=== PATIENT | female | born 1980 | race Caucasian/White ===

== ENCOUNTER 2016-12-24 10:00 | Inpatient (IN) | payer OTHER ==
[~2016-12-24] VITALS: Ht 157.5 cm; Wt 86.2 kg
--- NOTE | ~2016-12-24 | PN ---
Unit #: [id number] #: [id number] Patient: SAPPHIRE THAYER [id number] [facility] [address] [place] [address] [id number] MR#: [id number] NAME: SAPPHIRE TAHYER ROOM: P202 Age: 36 Sex: F Admission Date: 12/24/2016 : 1980 Attending Physician: Dylon Acevedo M.D. Admitting Physician: Dylon Acevedo M.D. Primary Care Physician: Primary Care Physician Brenna SERRATO NOTES DATE December 26, 2016 DISCUSSION Ms. Thayer is a 36-year-old white female, who was seen today and chart was reviewed and the case was discussed with the staff. She has been anxious, withdrawn, and rather seclusive to herself. Meanwhile, she has been cooperative with the treatment recommendations and has been taking the medications and tolerating them fairly well with no reported side effects. MENTAL STATUS EXAMINATION Young white female, who was casually dressed with fair personal hygiene and appears to be in no acute distress or discomfort. She was awake and alert with impaired attention and concentration. Her mood was anxious with a congruent affect. The patient denies any suicidal or homicidal ideations. Her insight and judgment remain slightly impaired. TREATMENT PLAN 1. We will continue her on her current medications and treatment protocol, and will monitor her response to the medications, and make further adjustments as needed. 2. We will continue to followup. Dictated by... Will Portillo/carleen TD: 12/27/2016 07:40 JOB #: [id number] Unit #: [id number] #: [id number] Patient: SAPPHIRE THAYER OTIS PROGRESS NOTES Page 1 of 1 X Dylon Acevedo MD PROGRESS NOTE
--- NOTE | ~2016-12-24 | HP ---
Unit #: [id number] #: [id number] Patient: SAPPHIRE BERMUDEZ [id number] [place] [address] [id number] I MR#: [id number] NAME: SAPPHIRE BERMUDEZ ROOM: 32 Age: 36 Sex: F Admission Date: 12/24/2016 : 1980 Attending Physician: Dylon Acevedo M.D. Admitting Physician: Dylon Acevedo M.D. Primary Care Physician: Primary Care Physician No HISTORY AND PHYSICAL HISTORY OF PRESENT ILLNESS The patient is a 36-year-old female who states she is an alcoholic and had a psychotic episode a few days ago and was brought here. PAST MEDICAL HISTORY Significant for asthma and fibromyalgia. PAST SURGICAL HISTORY 1. Significant for partial thyroidectomy. 2. Partial hysterectomy. ALLERGIES Gabapentin. SOCIAL HISTORY Positive for smoking, alcohol and heroin and methamphetamine. FAMILY HISTORY Noncontributory. REVIEW OF SYSTEMS CONSTITUTIONAL: No fever or chills. HEENT: Denies any sore throat, ear pain or runny nose. CARDIOVASCULAR: Denies chest pain, irregular heart rhythm or palpitations. CHEST: Denies shortness of breath or cough. No hemoptysis. GASTROINTESTINAL: Denies nausea, vomiting, diarrhea or chronic constipation. ENDOCRINE: Denies history of increased thirst or urination. No recent significant weight loss or gain. GENITOURINARY: Denies dysuria, frequency, or hematuria. SKIN: Denies any rashes. HEMATOLOGIC: Denies history of increased bleeding or bruising. MUSCULOSKELETAL: Denies any hot, swollen joints. No generalized muscle pain. NEUROLOGIC: Denies problems with vision or speech. No frequent, severe headaches. No numbness, tingling or weakness in any extremities. Denies loss of bladder or bowel control. CURRENT MEDICATIONS 1. Elavil 50 mg p.o. daily. 2. Celexa 20 mg p.o. daily. 3. Singulair 10 mg p.o. daily. 4. Symbicort 80/4.5 two puffs b.i.d. Unit #: [id number] #: [id number] Patient: SAPPHIRE BERMUDEZ 5. Ventolin inhaler 2 puffs q. 4 hours p.r.n. PHYSICAL EXAMINATION GENERAL: Alert, oriented, in no acute distress. VITAL SIGNS: Temperature 98.7, blood pressure 111/64, heart rate 91, respirations 16. HEIGHT: 5 feet 1-1/2 inches. WEIGHT: 190. SKIN: Warm and dry without rash or lesion. Multiple tattoos bilateral upper and lower extremities, entire back, chest and ear piercings. HEENT: Normocephalic. TMs not viewed. Oral and nasal passages clear. Conjunctivae clear. PERRLA. EOMs intact. NECK: Supple without lymphadenopathy or thyromegaly. HEART: Regular rate and rhythm without murmur. LUNGS: Clear. ABDOMEN: Soft, nontender, without masses or hepatosplenomegaly. : Not done. EXTREMITIES: No evidence of cyanosis, clubbing or edema. Moves all without focal deficit. NEUROLOGICAL: Grossly within normal limits. Cranial Nerves: II: Visual zambrano are intact. III, IV AND : Extraocular movements are intact. Pupils are equal, round and reactive to light. V: Facial sensation is grossly normal. VII: Facial movements and expression are normal. VIII: Auditory acuity grossly intact. IX, X: Uvula is midline. Phonation is normal. XI: Patient shrugs shoulders and turns head normally. XII: Tongue protrudes in the midline. Sensory and Motor Function: Sensory and motor sensation is grossly normal. Motor: moves all extremities well. Coordination: Gait is normal. Deep Tendon Reflexes: Intact. IMPRESSION Psychiatric admission. RECOMMENDATIONS PSYCHIATRIC: Per psychiatrist. MEDICAL: No contraindication to participate in facility's activities. MEDICAL PROGNOSIS Good. Dictated by... Meghann Westbrook/brice TD: 12/24/2016 20:17 JOB #: [id number] Unit #: [id number] #: [id number] Patient: SAPPHIRE BERMUDEZ HISTORY AND PHYSICAL Page 1 of 1 X Silvia Cedeno APR X HISTORY AND PHYSICAL
--- NOTE | ~2016-12-24 | PN ---
Unit #: [id number] #: [id number] Patient: SAPPHIRE THAYER [id number] [facility] [address] [place] [address] [id number] I MR#: [id number] NAME: SAPPHIRE THAYER ROOM: P202 Age: 36 Sex: F Admission Date: 12/24/2016 : 1980 Attending Physician: Dylon Acevedo M.D. Admitting Physician: Dylon Acevedo M.D. Primary Care Physician: Primary Care Physician Brenna BERG PROGRESS NOTES DATE 12/27/2016 DISCUSSION Ms. Thayer is a 36-year-old white female who was seen today and chart was reviewed and case was discussed with the staff. She has been anxious, withdrawn and rather seclusive to herself. Meanwhile, she has been cooperative with treatment recommendations and has been taking the medications and tolerating them fairly well with no reported side effects. MENTAL STATUS EXAMINATION Young white female who was casually dressed with fair personal hygiene and appears to be in no acute distress or discomfort. She was awake and alert on interaction with intact orientation. Her mood was anxious with congruent affect. She denies any suicidal or homicidal ideation and also denies any auditory or visual hallucinations. Her insight and judgement remains slightly impaired. TREATMENT PLAN 1. Will continue on current medications and treatment protocol. Will monitor her response to the medications and make further adjustments as needed. 2. Will continue to follow up. Dictated by... Dylon Acevedo M.D. IAA/brice TD: 12/27/2016 22:30 JOB #: [id number] Unit #: [id number] #: [id number] Patient: SAPPHIRE THAYER [place] PROGRESS NOTES Page 1 of 1 X Dylon Acevedo MD PROGRESS NOTE
--- NOTE | ~2016-12-24 | PA ---
Unit #: [id number] #: [id number] Patient: SAPPHIRE THAYER [id number] [facility] [place] [address] [id number] I MR#: [id number] NAME: SAPPHIRE THAYER ROOM: P132 Age: 36 Sex: F Admission Date: 12/24/2016 : 1980 Date of Assessment: Attending Physician: Dylon Acevedo M.D. Admitting Physician: Dylon Acevedo M.D. PSYCHIATRIC ASSESSMENT DATE OF SERVICE 12/24/2016. IDENTIFYING DATA Ms. Thayer is a 36-year-old, single, white female who is a resident of [place], [place] and is known to us from previous encounter, was self-referred to the hospital on a voluntary basis. CHIEF COMPLAINT "I had a psychotic break at the [facility] and I left at 2 a.m. today." HISTORY OF PRESENT ILLNESS Ms. Thayer is a 36-year-old white female who presented to the hospital with suicidal ideations, substance abuse, and "I was at the [facility] and the dry house worker told me I cannot come back until I complete detox and had a psychotic break at the [facility] and I left 2 in the morning." The patient reports suicidal ideation with plan to overdose on drugs or kill herself with a knife and she stated "I thought staff, clients, and my dry house worker were talking about me. I thought I saw their ladies from the house and dry house worker saying that they did not want me back and I thought I saw my sponsor." The patient reports that she relapsed in 12/20/2016 after 71 days of sobriety and her triggers are feeling disappointed and feeling too much pressure, trying to please dry house worker and boss, and trying to find a new sponsor. She reports using heroin and methamphetamine with the last use being on 12/22/2016 over the use of 1 g and methamphetamine 1 g also and does report increasing depression, anxiety, feelings of hopelessness and helplessness, and suicidal ideations and as such, recommendation for inpatient level of care was made and the patient was transferred to us. SUBSTANCE ABUSE HISTORY The patient reports history of heroin and methamphetamine abuse and reports that she was sober for 71 days before she ended up relapsing. PAST PSYCHIATRIC HISTORY The patient has had history of chemical dependency treatment at [facility], and review of the medical records indicate that currently she is not active in any treatment program, though she has been prescribed Celexa for depression. PAST MEDICAL HISTORY Fibromyalgia and asthma. Unit #: [id number] #: [id number] Patient: SAPPHIRE THAYER ALLERGIES Neurontin. PERSONAL AND SOCIAL HISTORY A 36-year-old white female who reports that she is single, unemployed, and lives in a group home house and has poor social support system. MENTAL STATUS EXAMINATION Young white female who was casually dressed with fair personal hygiene, appears to be in no acute distress or discomfort. She was awake and alert on interaction with intact orientation to time, place, and person. Her mood was anxious and depressed with a congruent affect. Her speech was slow and restricted in content. Her thought processes were disorganized with some looseness of associations and flight of ideas and paranoid ideations and suicidal ideations. Her insight and judgment remain significantly impaired. DIAGNOSTIC IMPRESSION Psychiatric: Major depressive disorder, recurrent, moderate, without psychotic features; opioid dependence, moderate; methamphetamine dependence, moderate. Medical: Fibromyalgia and asthma. Stressors: Moderate psychosocial stressors. TREATMENT PLAN 1. The patient has presented with a history of mood disorder and substance abuse, and has been decompensating and will need inpatient hospitalization for safety and stabilization. We will start her back on her home medications. We will adjust the medications and monitor response. 2. Supportive therapy was provided to the patient. 3. Safe, structured, and nourishing environment will be provided. ESTIMATED LENGTH OF STAY 4 to 5 days. ABILITY TO HELP SELF Limited. WILLINGNESS TO HELP SELF The patient appears to be willing to help self. STRENGTHS 1. Communicative. 2. Cooperative. PROBLEMS 1. Chronic dysphoric symptoms. 2. Chronic chemical dependency. 3. Poor social support system. DISCHARGE CRITERIA This will be contingent upon the patient's ability to show resolution of her depression and psychosis, and her ability to stay safe to herself, particularly after discharge from the hospital. Dictated by... Dylon Acevedo M.D. Unit #: [id number] #: [id number] Patient: SAPPHIRE THAYER IAA/modl TD: 12/25/2016 15:17 JOB #: [id number] PSYCHIATRIC ASSESSMENT Page 1 of 1 X Dylon Acevedo MD PSYCHIATRIC ASSESSMENT
--- NOTE | ~2016-12-24 | DS ---
Unit #: [id number] #: [id number] [facility] [id number] [facility] [address] [place] [address] [id number] I MR#: [id number] NAME: SAPPHIRE THAYER ROOM: [facility] [place] Age: 36 Sex: F Admission Date: 12/24/2016 : 1980 Discharge Date: 12/28/2016 Attending Physician: Dylon Acevedo M.D. Primary Care Physician: Primary Care Physician No DISCHARGE SUMMARY IDENTIFYING DATA Ms. Thayer is a 36-year-old white female, who is a resident of [place], [place], and was referred to us from her group home house. DISCHARGE DIAGNOSES Psychiatric: Opioid dependence, moderate and acute withdrawals; methamphetamine dependence, moderate; opioid-induced mood disorder. Medical: Asthma. Stressors: Moderate psychosocial stressors. HISTORY OF PRESENT ILLNESS Please see initial psychiatric evaluation for details. PAST PSYCHIATRIC HISTORY Please see initial psychiatric evaluation for details. PAST MEDICAL HISTORY Please see initial psychiatric evaluation for details. HOSPITAL COURSE The patient was admitted to the adult psychiatric and chemical dependency unit at [facility] and was oriented to the hospital environment. Routine p.r.n. medications were initiated, and she was started back on her home medications and medications were adjusted and detox protocol was maintained and she was seen to be doing much better and was able to come out of the detox without any complications and was wanting to go back to her group home house and as such, it was decided that she will be discharged to her group home house for ongoing outpatient chemical dependency rehab level of care. DISCHARGE MEDICATIONS Celexa 20 mg a day for depression, Elavil 50 mg at bedtime for sleep, Singulair 10 mg a day for allergies, and Symbicort 2 puffs b.i.d. for asthma. DISCHARGE CONDITION Stable. PROGNOSIS Fair. Dictated by... Dylon Acevedo M.D. Unit #: [id number] #: [id number] Patient: SAPPHIRE THAYER IAA/modl TD: 12/28/2016 07:17 JOB #: [id number] DISCHARGE SUMMARY Page 1 of 1 X Dylon Acevedo MD DISCHARGE SUMMARY
--- NOTE | ~2016-12-24 | PN ---
Unit #: [id number] #: [id number] Patient: SAPPHIRE THAYER [id number] [facility] [address] [place] [address] [id number] I MR#: [id number] NAME: SAPPHIRE THAYER ROOM: P202 Age: 36 Sex: F Admission Date: 12/24/2016 : 1980 Attending Physician: Dylon Acevedo M.D. Admitting Physician: Dylon Acevedo M.D. Primary Care Physician: Primary Care Physician Brenna BERG PROGRESS NOTES DATE 12/25/2016 DISCUSSION Ms. Thayer is a 36-year-old white female who was seen today and chart was reviewed and case was discussed with the staff. She has been anxious, withdrawn and rather seclusive to herself. Meanwhile, she has been exhibiting some persistent depressive symptoms. The patient has been taking the medications and tolerating them fairly well with no reported side effects. MENTAL STATUS EXAMINATION Young white female who was casually dressed with fair personal hygiene, appears to be in no acute distress or discomfort. She was awake and alert with impaired attention and concentration. Her mood was anxious with congruent affect. She denies any suicidal or homicidal ideations. Her insight and judgement remains slightly impaired. TREATMENT PLAN 1. We will continue her on her current medications and treatment protocol. We will monitor her response to the medication and make further adjustments as needed. 2. We will continue to follow up. Dictated by... Will Portillo/elan TD: 12/27/2016 03:23 JOB #: [id number] Unit #: [id number] #: [id number] Patient: SAPPHIRE THAYER [place] PROGRESS NOTES Page 1 of 1 X Dylon Acevedo MD PROGRESS NOTE
[~2016-12-24 10:00] MED LIST: AMITRYPTYLINE PO; CELEXA PO; NASONEX17 GM; SINGULAIR PO; ZYRTEC10 M1 PO
[2016-12-25 12:24] LABS: BASOPHIL# 0.1 X10e3 (0-0.3); BASOPHIL% 1.2 % (0-2.5); EOSINOPHIL# 0.2 X10e3 (0-0.7); EOSINOPHIL% 3.6 % (0.0-7.0); HEMATOCRIT 40.6 % (35.0-45.0); HEMOGLOBIN 13.5 gm/dL (12.0-16.0); LYMPHOCYTE# 1.6 X10e3 (1.0-3.5); LYMPHOCYTE% 28.8 % (17.0-45.0); MEAN CELL VOLUME 92.9 FL (83-96); MEAN CORPUSCULAR HEMOGLOBIN 30.8 PG (28-34); MEAN CORPUSCULAR HGB CONC 33.2 g/dL (30-36); MONOCYTE# 0.5 X10e3 (0-1.0); MONOCYTE% 8.3 % (3.0-12.0); NEUTROPHIL# 3.2 X10e3 (1.5-7.1); NEUTROPHIL% 58.1 % (40-75); PLATELET COUNT 219 X10e3 (140-420); RED BLOOD COUNT 4.37 X10e (3.90-5.30); WHITE BLOOD COUNT 5.4 X10e3 (4.0-10.5)
[2016-12-25 12:31] LABS: THYROID STIMULATING HORMONE 0.65 uIU/ml (0.34-5.60)
[2016-12-25 12:35] LABS: ALBUMIN SERUM 3.6 g/dL (3.5-5.0); BILIRUBIN,TOTAL 0.5 mg/dL (0.2-2.0); BUN/CREATININE RATIO 17.5; CALCIUM SERUM 8.9 mg/dL (8.4-10.2); CREATININE SERUM 0.8 mg/dL (0.6-1.4); GLOM FILT RATE Estimated 96.3 mL/min (>60); POTASSIUM 4.3 mmol/L (3.5-5.1); PROTEIN TOTAL SERUM 6.3 g/dL (6.0-8.3)
[2016-12-25 12:38] LABS: FREE THYROXIN (T4) 0.96 ng/dL (0.58-1.64)
[2016-12-25 12:49] LABS: DIFF IND NO
[2016-12-28 10:33] LABS: AMPHETAMINE POS (NEG); BARBITURATES NEG (NEG); BENZODIAZEPINES NEG (NEG); COCAINE NEG (NEG); MARIJUANA NEG (NEG); OPIATES NEG (NEG); TRICYCLIC ANTIDEPRESSANTS POS (NEG); U METHADONE NEG (NEG)
[2016-12-28 10:35] LABS: URINE APPEARANCE CLEAR; URINE BILIRUBIN NEG (NEG); URINE BLOOD NEG (NEG); URINE COLOR YELLOW; URINE GLUCOSE NEG (NEG); URINE KETONE NEG (NEG); URINE LEUKOCYTE ESTERASE 1+ (NEG); URINE NITRATE NEG (NEG); URINE PH 6.5 (5-8); URINE PROTEIN NEG (NEG); URINE SPECIFIC GRAVITY 1.019 (1.003-1.035); URINE UROBILINOGEN 0.2 MG/DL (NEG)
[2016-12-28 10:39] LABS: URINE BACTERIA AUWI 4+ (NEGATIVE); URINE SQUAMOUS EPITHELIAL CELL MOD /[HPF]
== END 2016-12-28 14:25 | disposition home or self-care (01) | DRG 885 ==
LOC: P1S 11:48 → P2S 11:48
PROVIDERS: Psychiatry & Neurology Psychiatry
PROC: HZ2ZZZZ Detoxification Services for Substance Abuse Treatment (ICD-10-PCS; principal; 2016-12-24)
DX: F33.1 Major depressive disorder, recurrent, moderate (principal); F11.20 Opioid dependence, uncomplicated; F15.20 Other stimulant dependence, uncomplicated; M79.7 Fibromyalgia; J45.909 Unspecified asthma, uncomplicated
CPT/HCPCS: 80053; 80307; 81003; 84439; 84443; 85025

== ENCOUNTER 2017-01-27 00:23 | Emergency (ER) | payer OTHER ==
[~2017-01-27] VITALS: Ht 154.9 cm; Wt 81.6 kg
== END 2017-01-27 02:12 | disposition left against medical advice (07) ==
LOC: CED 00:23
DX: Z53.21 Procedure and treatment not carried out due to patient leaving prior to being seen by health care provider (principal)